=== PATIENT | female | born 1990 | race Caucasian/White ===

== ENCOUNTER → 2017-03-02 | Outpatient (CLI) | payer MEDICAID ==
[~2017-03-02] MED LIST: CIPROFLOXACIN PO; DCS100C PO; HYDR1TAB75 PO; IBP800T PO; METO-272 PO; METR500T PO; TRAM50TA2 PO
--- NOTE | 2017-03-02 13:02 | Diagnostic Imaging Report ---
PROCEDURE: MRI lumbar spine. TECHNIQUE: Multiplanar, multisequence MRI of the lumbar spine was performed without contrast. INDICATION: Low back pain. COMPARISON: There are no prior studies available for comparison. FINDINGS: The reconstructed parasagittal images show slight retrolisthesis of L4 with respect to L5 and of L5 with respect to S1. There is also desiccation and moderate narrowing of the discs at these 2 levels. Furthermore, at the L5-S1 level, there is a prominent disc protrusion eccentric to the right. The disc indents the right ventral aspect of the thecal sac and narrows the AP diameter to approximately 5.6 mm. The disc is also in close proximity to the exiting right nerve root at this level and I suspect there is some encroachment on the nerve root. The remainder of the lumbar spine is unremarkable for spinal stenosis or nerve root encroachment although there is mild narrowing of the neural foramen bilaterally at L4-5. There is no abnormal signal arising from the cord or the vertebral bodies to indicate an acute abnormality. There is no sign of a paraspinal mass. IMPRESSION: 1. There is a prominent disc protrusion eccentric to the right at L5-S1. This does result in spinal stenosis and most likely there is encroachment of the exiting right nerve root at this level, as well. 2. There is desiccation and mild narrowing of the disc space at L4-5 but there is no sign of spinal stenosis or nerve. There is mild neural foraminal narrowing bilaterally, however. 3. The remainder of the lumbar spine is unremarkable for spinal stenosis or nerve root encroachment. 4. There is no sign an acute bony abnormality or of a cord lesion. Dictated by: Dictated on workstation # [id number]
== END ==
LOC: RAD 11:50
PROVIDERS: ATTEND Nurse Practitioner Family
DX: M43.06 Spondylolysis, lumbar region (principal)
CPT/HCPCS: 72148